=== PATIENT | male | born 1955 | race Caucasian/White ===

== ENCOUNTER 2023-12-15 00:08 | Inpatient (IN) | payer MEDICARE, OTHER ==
[2023-12-15] VITALS (13 sets, daily range): BP systolic 94–104; BP diastolic 45–51; TEMP 97.6–98.2; O2SAT 93–98
[~2023-12-15] VITALS: Ht 170.2 cm; Wt 81.2 kg
[2023-12-15] MEDS ORDERED: AMLO10TA59 PO (00:25)
[2023-12-15] MEDS ORDERED: POTA10CA43 PO (00:25)
[2023-12-15] MEDS ORDERED: FURO20TA4 PO (00:25)
[2023-12-15] MEDS ORDERED: OMEP40CA21 PO (00:25)
[2023-12-15] MEDS ORDERED: ESCI20TA44 PO (00:25)
[2023-12-15] MEDS ORDERED: ATOR20TA PO (00:25)
[2023-12-15] MEDS: IPRATROPIUM BROMIDE 0.5 MG/2.5 ML NEBU NEB ONE (00:27)
[2023-12-15] MEDS: ALBUTEROL SULFATE 2.5 MG/3 ML NEBU NEB ONE ×2 (00:27→01:24)
[2023-12-15] MEDS ORDERED: ALBUTEROL SULFATE 2.5 MG/3 ML NEBU ONE ×2 (00:32→01:05)
[2023-12-15] MEDS ORDERED: IPRATROPIUM BROMIDE 0.5 MG/2.5 ML NEBU ONE (00:32)
[2023-12-15] MEDS ORDERED: ASPIRIN 81 MG TAB.CHEW ONE (00:48)
[2023-12-15] MEDS ORDERED: methylPREDNISolone SOD SUCC 125 MG/2 ML VIAL ONE (00:48)
[2023-12-15] MEDS ORDERED: FUROSEMIDE 40 MG/4 ML VIAL ONE (00:49)
[2023-12-15 00:51] LABS: BASOPHILS # (AUTO) 0.1 K/UL (0.0-0.2); BASOPHILS % (AUTO) 1.1 % (0.0-2.0); EOSINOPHILS # (AUTO) 0.1 K/uL (0.0-0.7); EOSINOPHILS % (AUTO) 0.8 % (0.0-7.0); HEMATOCRIT 24.2 % (36.7-47.1); HEMOGLOBIN 8.4 g/dL (12.5-16.3); LYMPHOCYTES # (AUTO) 1.8 K/uL (0.8-4.8); LYMPHOCYTES % (AUTO) 17.5 % (20.5-51.5); MEAN CORPUSCULAR HEMOGLOBIN 36.5 uug (23.8-33.4); MEAN CORPUSCULAR HGB CONC 35 g/dL (32.5-36.3); MEAN CORPUSCULAR VOLUME 105.6 fL (73.0-96.2); MONOCYTES % (AUTO) 9.5 % (0.0-11.0); NEUTROPHILS # (AUTO) 7.4 K/uL (1.8-8.9); NEUTROPHILS % (AUTO) 71.1 % (38.5-71.5); PLATELET COUNT (AUTO) 99 K/uL (152-348); RED CELL DISTRIBUTION WIDTH 15.2 % (12.1-16.2); WHITE BLOOD COUNT (AUTO) 10.3 K/uL (3.6-10.2)
[2023-12-15] MEDS: ASPIRIN 81 MG TAB.CHEW PO ONE (00:58)
[2023-12-15] MEDS: FUROSEMIDE 40 MG/4 ML VIAL IV ONE ×2 (00:58→09:06)
[2023-12-15] MEDS: methylPREDNISolone SOD SUCC 125 MG/2 ML VIAL IV ONE (00:58)
[2023-12-15 00:59] LABS: CALCIUM 8.7 mg/dL (8.5-10.1); CARBON DIOXIDE 23 mmol/L (21-32); CHLORIDE 104 mmol/L (98-107); CREATININE 2.7 mg/dL (0.6-1.3); GLUCOSE 96 mg/dL (74-106); POTASSIUM 5.1 mmol/L (3.5-5.1); SODIUM SERUM 137 mmol/L (136-145); UREA NITROGEN, BLOOD 44 mg/dL (7-18)
[2023-12-15 01:01] LABS: DIFFERENTIAL COMMENT 1; RED BLOOD CELL COUNT(AUTO) 2.29 MIL/uL (4.06-5.63)
[2023-12-15] MEDS: IV NORMAL SALINE 1000 ML BAG IV ONE (01:06)
[2023-12-15 01:11] LABS: ALANINE AMINOTRANSFERASE 32 U/L (16-63); ALBUMIN 3.1 g/dL (3.4-5.0); ALKALINE PHOSPHATASE 366 U/L (50-136); ASPARTATE AMINOTRANSFERASE 40 U/L (15-37); BILIRUBIN,DIRECT 0.7 mg/dL (0.0-0.2); BILIRUBIN,TOTAL 1.5 mg/dL (0.2-1.0); NT-PRO BNP 4026 pg/mL (0-125); TOTAL PROTEIN, SERUM 7.8 g/dL (6.4-8.2)
[2023-12-15] MEDS ORDERED: CALCIUM GLUCONATE 1 GM/10 ML VIAL IV ONE (01:18)
[2023-12-15] MEDS: CALCIUM GLUCONATE IV 1 GM in IV NORMAL SALINE 100 ML IV ONE (01:29)
[2023-12-15] MEDS ORDERED: levoFLOXacin 750MG/D5W 150 ML IV ONE (01:35)
[2023-12-15] MEDS: levoFLOXacin 750 MG/D5W 150 ML PIGGYBACK IV ONE (01:44)
[2023-12-15] MEDS ORDERED: NITROGLYCERIN OINT 1 GM PACKET TP ONE (01:45)
[2023-12-15] MEDS: NITROGLYCERIN OINT 1 GM PACKET TP ONE (01:47)
[2023-12-15] MEDS ORDERED: LIDOCAINE 2% (GLYDO= UROJET) 10 ML JELLY MM ONE (02:25)
[2023-12-15] MEDS: LIDOCAINE 2% (GLYDO= UROJET) 10 ML JELLY MM ONE (02:46)
[2023-12-15] MEDS ORDERED: ZOLPIDEM 5 MG TABLET PO PRN (03:45)
[2023-12-15] MEDS: levoFLOXacin 750MG/D5W 750 MG in PREMIXED 1 EACH IV SCH ×2 (03:45→04:08)
[2023-12-15] MEDS ORDERED: ONDANSETRON 4 MG/2 ML VIAL IV PRN (03:45)
[2023-12-15] MEDS ORDERED: MAGNESIUM HYDROXIDE 30 ML LIQUID UDC PO PRN (03:45)
[2023-12-15] MEDS ORDERED: ACETAMINOPHEN 325 MG TABLET PO PRN (03:45)
[2023-12-15 07:35] LABS: BASOPHILS % (AUTO) 0.5 % (0.0-2.0); EOSINOPHILS % (AUTO) 0.1 % (0.0-7.0); HEMATOCRIT 23.1 % (36.7-47.1); HEMOGLOBIN 7.9 g/dL (12.5-16.3); LYMPHOCYTES # (AUTO) 0.4 K/uL (0.8-4.8); LYMPHOCYTES % (AUTO) 4.9 % (20.5-51.5); MEAN CORPUSCULAR HEMOGLOBIN 36.4 uug (23.8-33.4); MEAN CORPUSCULAR HGB CONC 34 g/dL (32.5-36.3); MEAN CORPUSCULAR VOLUME 106.4 fL (73.0-96.2); MONOCYTES # (AUTO) 0.2 K/uL (0.1-1.30); MONOCYTES % (AUTO) 2.6 % (0.0-11.0); NEUTROPHILS % (AUTO) 91.9 % (38.5-71.5); PLATELET COUNT (AUTO) 84 K/uL (152-348); RED CELL DISTRIBUTION WIDTH 14.9 % (12.1-16.2); WHITE BLOOD COUNT (AUTO) 7.6 K/uL (3.6-10.2)
[2023-12-15 07:57] LABS: CALCIUM 8.7 mg/dL (8.5-10.1); CREATININE 2.6 mg/dL (0.6-1.3); DIFFERENTIAL COMMENT 1; MAGNESIUM 2.3 mg/dL (1.8-2.4); RED BLOOD CELL COUNT(AUTO) 2.17 MIL/uL (4.06-5.63)
[2023-12-15 08:05] LABS: POTASSIUM 4.7 mmol/L (3.5-5.1)
[2023-12-15 08:11] LABS: ABG BASE EXCESS -5.9 mmol/L (-2.0-2.0); ABG HCO3 17.2 mmol/L (22.0-26.0); ABG PCO2 25.8 mmHg (35.0-48.0); ABG PH 7.442 (7.340-7.440); ABG PO2 70.9 mmHg (75.0-100.0); ABG SITE RIGHT RADIAL; ABG TOTAL HEMOGLOBIN 8.9 G/dL (14.0-18.0); AaDO2 95.2 mmHg; COHb 0.7 % (0.0-3.9); MetHb 0.2 % (0.0-1.5); O2Hb 92.9 % (94.0-97.0)
[2023-12-15 08:53] LABS: THYROID STIMULATING HORMONE 0.894 mIU/mL (0.358-3.740)
[2023-12-15] MEDS ORDERED: FUROSEMIDE 40 MG/4 ML VIAL IV SCH (09:00)
[2023-12-15] MEDS ORDERED: POTASSIUM CHLORIDE 10 MEQ TAB.PRT.SR PO SCH (09:00)
[2023-12-15] MEDS ORDERED: AMLODIPINE 10 MG TABLET PO SCH (09:00)
[2023-12-15] MEDS: PANTOPRAZOLE SODIUM 40 MG VIAL IV SCH (09:03)
[2023-12-15] MEDS: ESCITALOPRAM OXALATE 10 MG TABLET PO SCH (09:04)
[2023-12-15] MEDS: HEPARIN SODIUM,PORCINE 5,000 UNITS/ML VIAL SQ SCH (09:05)
[2023-12-15 11:43] LABS: LACTIC ACID 2.1 mmol/L (0.4-2.0)
[2023-12-15] MEDS ORDERED: EPINEPHRINE 1:10,000 1 MG/10 ML DISP.SYRIN ONE (18:00)
[2023-12-15] MEDS: ATORVASTATIN 20 MG TABLET PO SCH (21:13)
[2023-12-16] VITALS (36 sets, daily range): BP systolic 61–137; BP diastolic 31–71; TEMP 97–98.3; O2SAT 84–99
[2023-12-16] MEDS: IV NORMAL SALINE 500 ML IV ONE (00:53)
[2023-12-16 08:49] LABS: ALBUMIN 2.8 g/dL (3.4-5.0); BILIRUBIN,TOTAL 1.1 mg/dL (0.2-1.0); CALCIUM 8.5 mg/dL (8.5-10.1); CREATININE 2.6 mg/dL (0.6-1.3); MAGNESIUM 2.5 mg/dL (1.8-2.4); PHOSPHOROUS 6.4 mg/dL (2.5-4.9); POTASSIUM 4.9 mmol/L (3.5-5.1); TOTAL PROTEIN, SERUM 7.7 g/dL (6.4-8.2)
[2023-12-16] MEDS ORDERED: PANTOPRAZOLE SODIUM 40 MG VIAL ONE (08:59)
[2023-12-16] MEDS ORDERED: ESCITALOPRAM OXALATE 10 MG TABLET ONE (08:59)
[2023-12-16 09:14] LABS: *BLOOD, URINE 3+ (NEGATIVE); *CLARITY,URINE SLIGHTLY CLOUDY (CLEAR); *COLOR,URINE DARK YELLOW (YELLOW); *KETONES,URINE NEGATIVE (NEGATIVE); *UROBILINOGEN,URINE 0.2 E.U./dl (NORMAL); LEUKOCYTE ESTERASE ,URINE TRACE (NEGATIVE); NITRITE, URINE NEGATIVE (NEGATIVE); PH,URINE 5.5 (5.0-8.0); UGLUCOSE NEGATIVE (NEGATIVE)
[2023-12-16 09:21] LABS: *PROTEIN,URINE 3+ (NEGATIVE)
[2023-12-16 09:23] LABS: *BILIRUBIN,URIN 1+ (NEGATIVE)
[2023-12-16 09:25] LABS: BASOPHILS % (AUTO) 0.2 % (0.0-2.0); EOSINOPHILS # (AUTO) 0.1 K/uL (0.0-0.7); EOSINOPHILS % (AUTO) 0.5 % (0.0-7.0); HEMATOCRIT 22.8 % (36.7-47.1); HEMOGLOBIN 7.9 g/dL (12.5-16.3); LYMPHOCYTES # (AUTO) 1.5 K/uL (0.8-4.8); LYMPHOCYTES % (AUTO) 12.2 % (20.5-51.5); MEAN CORPUSCULAR HEMOGLOBIN 36.3 uug (23.8-33.4); MEAN CORPUSCULAR HGB CONC 34 g/dL (32.5-36.3); MEAN CORPUSCULAR VOLUME 105.5 fL (73.0-96.2); MONOCYTES # (AUTO) 0.9 K/uL (0.1-1.30); MONOCYTES % (AUTO) 6.9 % (0.0-11.0); NEUTROPHILS # (AUTO) 10.1 K/uL (1.8-8.9); NEUTROPHILS % (AUTO) 80.2 % (38.5-71.5); PLATELET COUNT (AUTO) 108 K/uL (152-348); RED CELL DISTRIBUTION WIDTH 15.1 % (12.1-16.2); WHITE BLOOD COUNT (AUTO) 12.5 K/uL (3.6-10.2)
[2023-12-16 09:26] LABS: RED BLOOD CELL COUNT(AUTO) 2.17 MIL/uL (4.06-5.63)
[2023-12-16 09:27] LABS: DIFFERENTIAL COMMENT 1
[2023-12-16 10:26] LABS: BACTERIA,URINE FEW /HPF (NONE SEEN); RBC,URINE TNTC /HPF (0-3); SQUAMOUS EPITHELIAL CELL,UR FEW /HPF (NONE SEEN); URINE AMORPHOUS URATE MODERATE /HPF
[2023-12-16] MEDS ORDERED: IPRATROPIUM BROMIDE 0.5 MG/2.5 ML NEBU ONE ×2 (11:12→15:06)
[2023-12-16] MEDS ORDERED: ALBUTEROL SULFATE 2.5 MG/3 ML NEBU ONE ×3 (11:12→15:06)
[2023-12-16] MEDS: IPRATROPIUM BROMIDE 0.5 MG/2.5 ML NEBU NEB PRN (11:21)
[2023-12-16] MEDS: ALBUTEROL SULFATE 2.5 MG/3 ML NEBU NEB PRN (11:21)
[2023-12-16] MEDS ORDERED: PIPERACILLIN/TAZOBACTAM/D5W 50 ML ONE ×2 (11:50→13:52)
[2023-12-16] MEDS: PIPERACILLIN/TAZO 2.25 G in IV DEXTROSE 5% 50 ML IV SCH (12:01)
[2023-12-16] MEDS: VANCOMYCIN IV 1,250 MG in IV DEXTROSE 5% 250 ML IV SCH (14:26)
[2023-12-16 18:09] LABS: BASOPHILS # (AUTO) 0.1 K/UL (0.0-0.2); BASOPHILS % (AUTO) 0.6 % (0.0-2.0); EOSINOPHILS # (AUTO) 0.1 K/uL (0.0-0.7); EOSINOPHILS % (AUTO) 0.2 % (0.0-7.0); HEMATOCRIT 27.5 % (36.7-47.1); HEMOGLOBIN 9.1 g/dL (12.5-16.3); LYMPHOCYTES # (AUTO) 4.2 K/uL (0.8-4.8); LYMPHOCYTES % (AUTO) 19.4 % (20.5-51.5); MEAN CORPUSCULAR HEMOGLOBIN 37.1 uug (23.8-33.4); MEAN CORPUSCULAR HGB CONC 33 g/dL (32.5-36.3); MEAN CORPUSCULAR VOLUME 111.7 fL (73.0-96.2); MONOCYTES # (AUTO) 2.2 K/uL (0.1-1.30); MONOCYTES % (AUTO) 10.3 % (0.0-11.0); NEUTROPHILS # (AUTO) 15.2 K/uL (1.8-8.9); NEUTROPHILS % (AUTO) 69.5 % (38.5-71.5); PLATELET COUNT (AUTO) 180 K/uL (152-348); RED CELL DISTRIBUTION WIDTH 16.1 % (12.1-16.2); WHITE BLOOD COUNT (AUTO) 21.8 K/uL (3.6-10.2)
[2023-12-16 18:15] LABS: DIFFERENTIAL COMMENT 1; RED BLOOD CELL COUNT(AUTO) 2.46 MIL/uL (4.06-5.63)
[2023-12-16 18:25] LABS: BILIRUBIN,TOTAL 1.5 mg/dL (0.2-1.0); CALCIUM 8.5 mg/dL (8.5-10.1); MAGNESIUM 2.5 mg/dL (1.8-2.4); PHOSPHOROUS 7.7 mg/dL (2.5-4.9); POTASSIUM 4.5 mmol/L (3.5-5.1); TOTAL PROTEIN, SERUM 8.3 g/dL (6.4-8.2)
[2023-12-16] MEDS ORDERED: PROPOFOL 50 ML IV PRN (18:30)
[2023-12-16] MEDS: LORAZEPAM 2 MG/1 ML VIAL IV PRN (18:38)
[2023-12-16] MEDS: PROPOFOL 100 ML IV PRN (18:43)
[2023-12-16 19:39] LABS: LACTIC ACID 4.3 mmol/L (0.4-2.0)
[2023-12-16] MEDS: BUMETANIDE 1 MG/4 ML VIAL IV ONE (20:20)
[2023-12-16] MEDS: NOREPINEPHRINE BITARTRATE 8 MG in IV NORMAL SALINE 242 ML IV PRN (20:30)
[2023-12-16] MEDS ORDERED: NOREPINEPHRINE BITARTRATE 4 MG/4 ML VIAL IV ONE (20:43)
[2023-12-16 20:54] LABS: ANISOCYTOSIS 1+; LYMPHOCYTES % (MANUAL) 32 % (20-40); MONOCYTES % (MANUAL) 9 % (2-10); NEUTROPHILS % (MANUAL) 59 % (42-75); PLATELET ESTIMATE ADEQUATE
[2023-12-16] MEDS: PIPERACILLIN SODIUM/TAZOBACTAM 3.375 G in IV DEXTROSE 5% 100 ML IV SCH (21:00)
[2023-12-16] MEDS: PANTOPRAZOLE SODIUM 40 MG VIAL IV SCH (21:18)
[2023-12-16] MEDS ORDERED: DOXYCYCLINE HYCLATE 100 MG INJ IV ONE (22:25)
[2023-12-16] MEDS: DOXYCYCLINE HYCLATE IV 100 MG in IV DEXTROSE 5% 100 ML IV ONE (22:50)
[2023-12-17] VITALS (82 sets, daily range): BP systolic 66–144; BP diastolic 36–62; TEMP 98.1–100.8; O2SAT 90–100
[2023-12-17] MEDS: ACETAMINOPHEN 650 MG SUPP.RECT RC PRN (00:20)
[2023-12-17] MEDS ORDERED: NOREPINEPHRINE BITARTRATE 4 MG/4 ML VIAL IV ONE (02:20)
[2023-12-17 05:41] LABS: BASOPHILS % (AUTO) 0.3 % (0.0-2.0); DIFFERENTIAL COMMENT 1; HEMATOCRIT 33.2 % (36.7-47.1); HEMOGLOBIN 11.4 g/dL (12.5-16.3); LYMPHOCYTES % (AUTO) 6.8 % (20.5-51.5); MEAN CORPUSCULAR HEMOGLOBIN 36.2 uug (23.8-33.4); MEAN CORPUSCULAR HGB CONC 34 g/dL (32.5-36.3); MEAN CORPUSCULAR VOLUME 105.8 fL (73.0-96.2); MONOCYTES # (AUTO) 1.8 K/uL (0.1-1.30); MONOCYTES % (AUTO) 12.6 % (0.0-11.0); NEUTROPHILS # (AUTO) 11.5 K/uL (1.8-8.9); NEUTROPHILS % (AUTO) 80.3 % (38.5-71.5); PLATELET COUNT (AUTO) 208 K/uL (152-348); RED BLOOD CELL COUNT(AUTO) 3.14 MIL/uL (4.06-5.63); RED CELL DISTRIBUTION WIDTH 15.3 % (12.1-16.2); WHITE BLOOD COUNT (AUTO) 14.3 K/uL (3.6-10.2)
[2023-12-17 06:14] LABS: ALBUMIN 2.7 g/dL (3.4-5.0); BILIRUBIN,TOTAL 1.9 mg/dL (0.2-1.0); CALCIUM 8.2 mg/dL (8.5-10.1); CREATININE 2.9 mg/dL (0.6-1.3); MAGNESIUM 2.4 mg/dL (1.8-2.4); PHOSPHOROUS 6.4 mg/dL (2.5-4.9); TOTAL PROTEIN, SERUM 7.9 g/dL (6.4-8.2)
[2023-12-17 06:20] LABS: ABG HCO3 17.4 mmol/L (22.0-26.0); ABG PCO2 30.9 mmHg (35.0-48.0); ABG PH 7.368 (7.340-7.440); ABG PO2 66.3 mmHg (75.0-100.0); ABG SITE LEFT BRACHIAL; ABG TOTAL HEMOGLOBIN 9.8 G/dL (14.0-18.0); AaDO2 92.9 mmHg; COHb 0.3 % (0.0-3.9); MetHb 0.3 % (0.0-1.5); O2Hb 90.3 % (94.0-97.0); VT, ABG 500 mL
[2023-12-17 06:30] LABS: ABG BASE EXCESS -6.3 mmol/L (-2.0-2.0); ABG PCO2 26.7 mmHg (35.0-48.0); ABG PH 7.422 (7.340-7.440); ABG PO2 57.1 mmHg (75.0-100.0); ABG TOTAL HEMOGLOBIN 9.6 G/dL (14.0-18.0); AaDO2 90.9 mmHg; MetHb 0.2 % (0.0-1.5); O2Hb 88.7 % (94.0-97.0); VT, ABG 500 mL
[2023-12-17 06:32] LABS: POTASSIUM 6.7 mmol/L (3.5-5.1)
[2023-12-17] MEDS ORDERED: PANTOPRAZOLE SODIUM 40 MG TABLET.DR PO SCH (07:00)
[2023-12-17] MEDS ORDERED: ALBUTEROL SULFATE 2.5 MG/3 ML NEBU NEB SCH (08:30)
[2023-12-17] MEDS: methylPREDNISolone SOD SUCC 125 MG/2 ML VIAL IV SCH (09:29)
[2023-12-17] MEDS: FUROSEMIDE 20 MG/2 ML VIAL IV SCH (09:30)
[2023-12-17] MEDS: DOXYCYCLINE HYCLATE IV 100 MG in IV DEXTROSE 5% 100 ML IV SCH (09:34)
[2023-12-17] MEDS ORDERED: SODIUM POLYSTYRENE SULFONATE 15 G/60 ML LIQUID UDC NG ONE (10:00)
[2023-12-17] MEDS: IPRATROPIUM BROMIDE 0.5 MG/2.5 ML NEBU NEB SCH (10:19)
[2023-12-17] MEDS: ALBUTEROL SULFATE 1.25 MG/3 ML NEBU NEB SCH (10:19)
[2023-12-17] MEDS: SODIUM POLYSTYRENE SULFONATE ENEMA 30 G/120 ML BOTTLE RC ONE (10:59)
[2023-12-17] MEDS: FUROSEMIDE 20 MG/2 ML VIAL IVP ONE (11:00)
[2023-12-17] MEDS ORDERED: HEPARIN SODIUM,PORCINE/PF 500 UNIT/5 ML SYR XX PRN (11:00)
[2023-12-17] MEDS: MULTIVITAMINS,THERAPEUTIC TABLET NG SCH (15:52)
[2023-12-17] MEDS: FOLIC ACID 1 MG TABLET NG SCH (15:53)
[2023-12-17] MEDS: THIAMINE HCL 100 MG TABLET NG SCH (15:53)
[2023-12-17] MEDS: PIPERACILLIN/TAZO 2.25 G in IV DEXTROSE 5% 50 ML IV SCH (16:45)
[2023-12-17] MEDS ORDERED: FUROSEMIDE 20 MG/2 ML VIAL IV SCH (21:00)
[2023-12-17] MEDS: FUROSEMIDE 40 MG/4 ML VIAL IVP SCH (21:27)
[2023-12-17] MEDS: IV NORMAL SALINE 250 ML IV PRN (21:44)
[2023-12-18] VITALS (64 sets, daily range): BP systolic 80–144; BP diastolic 37–60; TEMP 97.7–98.4; O2SAT 97–100
[2023-12-18 05:20] LABS: BASOPHILS % (AUTO) 0.1 % (0.0-2.0); HEMATOCRIT 24.8 % (36.7-47.1); HEMOGLOBIN 8.6 g/dL (12.5-16.3); LYMPHOCYTES # (AUTO) 0.5 K/uL (0.8-4.8); LYMPHOCYTES % (AUTO) 6.8 % (20.5-51.5); MEAN CORPUSCULAR HEMOGLOBIN 36.2 uug (23.8-33.4); MEAN CORPUSCULAR HGB CONC 35 g/dL (32.5-36.3); MEAN CORPUSCULAR VOLUME 104.5 fL (73.0-96.2); MONOCYTES # (AUTO) 0.4 K/uL (0.1-1.30); MONOCYTES % (AUTO) 5.9 % (0.0-11.0); NEUTROPHILS # (AUTO) 6.4 K/uL (1.8-8.9); NEUTROPHILS % (AUTO) 87.2 % (38.5-71.5); PLATELET COUNT (AUTO) 123 K/uL (152-348); RED CELL DISTRIBUTION WIDTH 14.3 % (12.1-16.2); WHITE BLOOD COUNT (AUTO) 7.4 K/uL (3.6-10.2)
[2023-12-18 05:36] LABS: ALBUMIN 2.6 g/dL (3.4-5.0); BILIRUBIN,TOTAL 1.6 mg/dL (0.2-1.0); CALCIUM 8.6 mg/dL (8.5-10.1); CREATININE 2.3 mg/dL (0.6-1.3); MAGNESIUM 2.3 mg/dL (1.8-2.4); PHOSPHOROUS 4.5 mg/dL (2.5-4.9); POTASSIUM 3.1 mmol/L (3.5-5.1); TOTAL PROTEIN, SERUM 7.5 g/dL (6.4-8.2)
[2023-12-18 06:29] LABS: DIFFERENTIAL COMMENT 1; RED BLOOD CELL COUNT(AUTO) 2.37 MIL/uL (4.06-5.63)
[2023-12-18 07:06] LABS: PTH, INTACT 63 pg/mL (15-65)
[2023-12-18 08:24] LABS: ABG BASE EXCESS -1.2 mmol/L (-2.0-2.0); ABG HCO3 22.4 mmol/L (22.0-26.0); ABG PCO2 32.7 mmHg (35.0-48.0); ABG PH 7.453 (7.340-7.440); ABG PO2 131.4 mmHg (75.0-100.0); AaDO2 98.8 mmHg; COHb 0.3 % (0.0-3.9); MetHb 0.3 % (0.0-1.5); VT, ABG 500 mL
[2023-12-18] MEDS ORDERED: NOREPINEPHRINE BITARTRATE 32 MG in IV NORMAL SALINE 218 ML IV PRN (08:45)
[2023-12-18] MEDS: POTASSIUM CHLORIDE 50 ML IV SCH (10:11)
[2023-12-18] MEDS: JEVITY 1.2 1000 ML LIQUID GT PRN (14:09)
[2023-12-18] MEDS: methylPREDNISolone SOD SUCC 40 MG/ML VIAL IV SCH (16:58)
[2023-12-18 23:40] LABS: *OCCULT BLOOD STOOL POSITIVE (NEGATIVE)
[2023-12-18 23:49] LABS: CALCIUM 8.7 mg/dL (8.5-10.1); CREATININE 1.9 mg/dL (0.6-1.3); POTASSIUM 3.4 mmol/L (3.5-5.1)
[2023-12-19] VITALS (42 sets, daily range): BP systolic 92–136; BP diastolic 37–98; TEMP 97.1–99.2; O2SAT 96–100
[2023-12-19 05:10] LABS: BASOPHILS % (AUTO) 0.2 % (0.0-2.0); HEMATOCRIT 23.6 % (36.7-47.1); HEMOGLOBIN 8.2 g/dL (12.5-16.3); LYMPHOCYTES # (AUTO) 0.6 K/uL (0.8-4.8); LYMPHOCYTES % (AUTO) 7.4 % (20.5-51.5); MEAN CORPUSCULAR HEMOGLOBIN 36.3 uug (23.8-33.4); MEAN CORPUSCULAR HGB CONC 35 g/dL (32.5-36.3); MEAN CORPUSCULAR VOLUME 104.6 fL (73.0-96.2); MONOCYTES # (AUTO) 0.6 K/uL (0.1-1.30); MONOCYTES % (AUTO) 7.8 % (0.0-11.0); NEUTROPHILS # (AUTO) 6.8 K/uL (1.8-8.9); NEUTROPHILS % (AUTO) 84.6 % (38.5-71.5); PLATELET COUNT (AUTO) 125 K/uL (152-348); RED CELL DISTRIBUTION WIDTH 14.7 % (12.1-16.2)
[2023-12-19 05:28] LABS: DIFFERENTIAL COMMENT 1; RED BLOOD CELL COUNT(AUTO) 2.25 MIL/uL (4.06-5.63)
[2023-12-19 05:39] LABS: *BILIRUBIN,URIN NEGATIVE (NEGATIVE); *BLOOD, URINE 3+ (NEGATIVE); *COLOR,URINE YELLOW (YELLOW); *KETONES,URINE NEGATIVE (NEGATIVE); *PROTEIN,URINE NEGATIVE (NEGATIVE); *UROBILINOGEN,URINE 0.2 E.U./dl (NORMAL); LEUKOCYTE ESTERASE ,URINE TRACE (NEGATIVE); NITRITE, URINE NEGATIVE (NEGATIVE); PH,URINE 5.5 (5.0-8.0); UGLUCOSE NEGATIVE (NEGATIVE)
[2023-12-19 05:44] LABS: ALBUMIN 2.5 g/dL (3.4-5.0); CALCIUM 8.6 mg/dL (8.5-10.1); CREATININE 2.1 mg/dL (0.6-1.3); MAGNESIUM 2.5 mg/dL (1.8-2.4); PHOSPHOROUS 4.6 mg/dL (2.5-4.9); POTASSIUM 3.7 mmol/L (3.5-5.1); TOTAL PROTEIN, SERUM 7.3 g/dL (6.4-8.2)
[2023-12-19 05:49] LABS: ABG BASE EXCESS -0.3 mmol/L (-2.0-2.0); ABG HCO3 22.7 mmol/L (22.0-26.0); ABG PH 7.483 (7.340-7.440); ABG PO2 139.5 mmHg (75.0-100.0); ABG SITE LEFT BRACHIAL; ABG TOTAL HEMOGLOBIN 8.9 G/dL (14.0-18.0); COHb 0.1 % (0.0-3.9); MetHb 0.3 % (0.0-1.5); O2Hb 98.6 % (94.0-97.0); VT, ABG 500 mL
[2023-12-19 05:50] LABS: *CLARITY,URINE SLIGHTLY CLOUDY (CLEAR)
[2023-12-19 05:59] LABS: *CREATININE,URINE 63.1 mg/dL (30-125); *URINE TOTAL PROTEIN RANDOM 38.7 mg/dL (<150/24HR)
[2023-12-19 06:14] LABS: BACTERIA,URINE MODERATE /HPF (NONE SEEN); CALCIUM OXALATE CRYSTALS,UR MODERATE /HPF (NONE SEEN); RBC,URINE TNTC /HPF (0-3); SQUAMOUS EPITHELIAL CELL,UR NONE SEEN /HPF (NONE SEEN); WBC,URINE 0-3 /HPF (0-3)
[2023-12-19] MEDS: LACTULOSE 20 G/30 ML LIQUID UDC PO SCH (10:00)
[2023-12-19] MEDS: REMEDY ESSENTIAL ZINC PASTE 113 GM TOP SCH (12:15)
[2023-12-19] MEDS: REMEDY ESSENTIAL ZINC PASTE 113 GM TP PRN (13:48)
[2023-12-19] MEDS: PROPOFOL 100 ML IV PRN (15:31)
[2023-12-20] VITALS (41 sets, daily range): BP systolic 92–140; BP diastolic 39–89; TEMP 97.5–98.1; O2SAT 95–100
[2023-12-20 05:09] LABS: BASOPHILS % (AUTO) 0.3 % (0.0-2.0); EOSINOPHILS % (AUTO) 0.1 % (0.0-7.0); HEMATOCRIT 25.7 % (36.7-47.1); HEMOGLOBIN 9.5 g/dL (12.5-16.3); LYMPHOCYTES # (AUTO) 0.5 K/uL (0.8-4.8); LYMPHOCYTES % (AUTO) 7.3 % (20.5-51.5); MEAN CORPUSCULAR HEMOGLOBIN 38.7 uug (23.8-33.4); MEAN CORPUSCULAR HGB CONC 37 g/dL (32.5-36.3); MEAN CORPUSCULAR VOLUME 104.8 fL (73.0-96.2); MONOCYTES # (AUTO) 0.5 K/uL (0.1-1.30); MONOCYTES % (AUTO) 6.5 % (0.0-11.0); NEUTROPHILS # (AUTO) 6.2 K/uL (1.8-8.9); NEUTROPHILS % (AUTO) 85.8 % (38.5-71.5); PLATELET COUNT (AUTO) 123 K/uL (152-348); RED CELL DISTRIBUTION WIDTH 14.6 % (12.1-16.2); WHITE BLOOD COUNT (AUTO) 7.3 K/uL (3.6-10.2)
[2023-12-20 05:24] LABS: DIFFERENTIAL COMMENT 1; RED BLOOD CELL COUNT(AUTO) 2.45 MIL/uL (4.06-5.63)
[2023-12-20 05:32] LABS: CALCIUM 8.5 mg/dL (8.5-10.1); CREATININE 1.9 mg/dL (0.6-1.3); MAGNESIUM 2.5 mg/dL (1.8-2.4); PHOSPHOROUS 5.5 mg/dL (2.5-4.9); POTASSIUM 3.3 mmol/L (3.5-5.1)
[2023-12-20 06:07] LABS: HEPATITIS B SURFACE AG Negative (Negative); HEPATITIS Be ANTIGEN Negative (Negative)
[2023-12-20 06:11] LABS: ABG BASE EXCESS -0.9 mmol/L (-2.0-2.0); ABG HCO3 21.7 mmol/L (22.0-26.0); ABG PCO2 30.7 mmHg (35.0-48.0); ABG PH 7.467 (7.340-7.440); ABG PO2 80.9 mmHg (75.0-100.0); ABG SITE RIGHT RADIAL; ABG TOTAL HEMOGLOBIN 14.7 G/dL (14.0-18.0); AaDO2 96.7 mmHg; COHb 0.7 % (0.0-3.9); MetHb 0.3 % (0.0-1.5); O2Hb 95.4 % (94.0-97.0); VT, ABG 500 mL
[2023-12-20] MEDS: POTASSIUM CHLORIDE 20 MEQ POWDER PACKET GT ONE (07:03)
[2023-12-20] MEDS: MIDAZOLAM HCL 50 MG in IV NORMAL SALINE 40 ML IV PRN (20:26)
[2023-12-21] VITALS (46 sets, daily range): BP systolic 97–132; BP diastolic 43–70; TEMP 97.5–98.1; O2SAT 93–100
[2023-12-21 06:00] LABS: BASOPHILS % (AUTO) 0.2 % (0.0-2.0); EOSINOPHILS % (AUTO) 0.1 % (0.0-7.0); HEMATOCRIT 27.8 % (36.7-47.1); HEMOGLOBIN 9.5 g/dL (12.5-16.3); LYMPHOCYTES # (AUTO) 0.6 K/uL (0.8-4.8); LYMPHOCYTES % (AUTO) 8.3 % (20.5-51.5); MEAN CORPUSCULAR HEMOGLOBIN 35.7 uug (23.8-33.4); MEAN CORPUSCULAR HGB CONC 34 g/dL (32.5-36.3); MEAN CORPUSCULAR VOLUME 104.4 fL (73.0-96.2); MONOCYTES # (AUTO) 0.5 K/uL (0.1-1.30); NEUTROPHILS # (AUTO) 6.5 K/uL (1.8-8.9); NEUTROPHILS % (AUTO) 85.4 % (38.5-71.5); PLATELET COUNT (AUTO) 128 K/uL (152-348); RED BLOOD CELL COUNT(AUTO) 2.67 MIL/uL (4.06-5.63); RED CELL DISTRIBUTION WIDTH 14.4 % (12.1-16.2); WHITE BLOOD COUNT (AUTO) 7.6 K/uL (3.6-10.2)
[2023-12-21 06:13] LABS: DIFFERENTIAL COMMENT 1
[2023-12-21 06:25] LABS: CALCIUM 8.9 mg/dL (8.5-10.1); CREATININE 2.2 mg/dL (0.6-1.3); MAGNESIUM 2.7 mg/dL (1.8-2.4); PHOSPHOROUS 5.6 mg/dL (2.5-4.9)
[2023-12-21] MEDS: FUROSEMIDE 40 MG/4 ML VIAL IVP SCH (08:17)
[2023-12-21 08:19] LABS: ABG HCO3 25.2 mmol/L (22.0-26.0); ABG PCO2 35.4 mmHg (35.0-48.0); ABG PO2 80.8 mmHg (75.0-100.0); ABG SITE LEFT RADIAL; ABG TOTAL HEMOGLOBIN 16.3 G/dL (14.0-18.0); AaDO2 96.6 mmHg; COHb 0.8 % (0.0-3.9); MetHb 0.3 % (0.0-1.5); O2Hb 94.8 % (94.0-97.0); VT, ABG 500 mL
[2023-12-21 09:07] LABS: A/G RATIO 0.6 (0.7-1.7); ALBUMIN 2.6 g/dL (2.9-4.4); ALPHA-1-GLOBULIN 0.4 g/dL (0.0-0.4); ALPHA-2-GLOBULIN 0.9 g/dL (0.4-1.0); BETA GLOBULIN 1.2 g/dL (0.7-1.3); GAMMA GLOBULIN 1.9 g/dL (0.4-1.8); GLOBULIN, TOTAL 4.4 g/dL (2.2-3.9); M-SPIKE Not Observed g/dL (Not Observed)
[2023-12-21] MEDS: JEVITY 1.2 1000 ML LIQUID GT PRN (18:55)
[2023-12-22] VITALS (17 sets, daily range): BP systolic 98–130; BP diastolic 44–65; TEMP 97.1–99.3; O2SAT 92–98
[2023-12-22 05:18] LABS: BASOPHILS % (AUTO) 0.2 % (0.0-2.0); HEMATOCRIT 28.3 % (36.7-47.1); HEMOGLOBIN 9.7 g/dL (12.5-16.3); LYMPHOCYTES # (AUTO) 0.9 K/uL (0.8-4.8); LYMPHOCYTES % (AUTO) 8.9 % (20.5-51.5); MEAN CORPUSCULAR HGB CONC 34 g/dL (32.5-36.3); MEAN CORPUSCULAR VOLUME 102.4 fL (73.0-96.2); MONOCYTES # (AUTO) 0.8 K/uL (0.1-1.30); MONOCYTES % (AUTO) 8.3 % (0.0-11.0); NEUTROPHILS % (AUTO) 82.6 % (38.5-71.5); PLATELET COUNT (AUTO) 131 K/uL (152-348); RED BLOOD CELL COUNT(AUTO) 2.76 MIL/uL (4.06-5.63); RED CELL DISTRIBUTION WIDTH 14.3 % (12.1-16.2); WHITE BLOOD COUNT (AUTO) 9.7 K/uL (3.6-10.2)
[2023-12-22 05:32] LABS: MAGNESIUM 2.6 mg/dL (1.8-2.4); PHOSPHOROUS 5.3 mg/dL (2.5-4.9)
[2023-12-22 05:34] LABS: ALANINE AMINOTRANSFERASE 85 U/L (16-63); ALBUMIN 2.7 g/dL (3.4-5.0); ALKALINE PHOSPHATASE 215 U/L (50-136); ASPARTATE AMINOTRANSFERASE 58 U/L (15-37); BILIRUBIN,TOTAL 1.1 mg/dL (0.2-1.0); CALCIUM 8.2 mg/dL (8.5-10.1); CARBON DIOXIDE 30 mmol/L (21-32); CHLORIDE 103 mmol/L (98-107); CREATININE 2.2 mg/dL (0.6-1.3); GLUCOSE 142 mg/dL (74-106); POTASSIUM 3.8 mmol/L (3.5-5.1); SODIUM SERUM 141 mmol/L (136-145); TOTAL PROTEIN, SERUM 7.6 g/dL (6.4-8.2); UREA NITROGEN, BLOOD 68 mg/dL (7-18)
[2023-12-22 05:38] LABS: AMMONIA < 10 umol/L (11-32)
[2023-12-22 05:39] LABS: DIFFERENTIAL COMMENT 1
[2023-12-22 06:25] LABS: ABG BASE EXCESS 4.2 mmol/L (-2.0-2.0); ABG HCO3 27.3 mmol/L (22.0-26.0); ABG PCO2 35.5 mmHg (35.0-48.0); ABG PH 7.504 (7.340-7.440); ABG PO2 75.3 mmHg (75.0-100.0); ABG SITE RIGHT RADIAL; ABG TOTAL HEMOGLOBIN 11.3 G/dL (14.0-18.0); AaDO2 96.2 mmHg; COHb 0.2 % (0.0-3.9); MetHb 0.2 % (0.0-1.5); O2Hb 94.5 % (94.0-97.0); VT, ABG 500 mL
[2023-12-22] MEDS: methylPREDNISolone SOD SUCC 40 MG/ML VIAL IV SCH (08:40)
[2023-12-22 10:09] LABS: ABG HCO3 27.3 mmol/L (22.0-26.0); ABG PCO2 36.2 mmHg (35.0-48.0); ABG PH 7.495 (7.340-7.440); ABG PO2 70.8 mmHg (75.0-100.0); AaDO2 95.5 mmHg; COHb 0.2 % (0.0-3.9); MetHb 0.2 % (0.0-1.5); O2Hb 93.7 % (94.0-97.0); VT, ABG 500 mL
[2023-12-22 23:07] LABS: FOLATE (FOLIC ACID), SERUM 12.3 ng/mL (>3.0)
[2023-12-23] VITALS (44 sets, daily range): BP systolic 97–163; BP diastolic 47–77; TEMP 97.8–101.3; O2SAT 30–100
[2023-12-23] MEDS ORDERED: LORAZEPAM 2 MG/1 ML VIAL IV PRN (05:15)
[2023-12-23 05:26] LABS: BASOPHILS % (AUTO) 0.3 % (0.0-2.0); HEMATOCRIT 27.7 % (36.7-47.1); HEMOGLOBIN 9.5 g/dL (12.5-16.3); LYMPHOCYTES # (AUTO) 1.2 K/uL (0.8-4.8); LYMPHOCYTES % (AUTO) 10.7 % (20.5-51.5); MEAN CORPUSCULAR HEMOGLOBIN 35.1 uug (23.8-33.4); MEAN CORPUSCULAR HGB CONC 34 g/dL (32.5-36.3); MEAN CORPUSCULAR VOLUME 102.2 fL (73.0-96.2); MONOCYTES # (AUTO) 1.1 K/uL (0.1-1.30); MONOCYTES % (AUTO) 9.4 % (0.0-11.0); NEUTROPHILS # (AUTO) 8.9 K/uL (1.8-8.9); NEUTROPHILS % (AUTO) 79.6 % (38.5-71.5); PLATELET COUNT (AUTO) 143 K/uL (152-348); RED BLOOD CELL COUNT(AUTO) 2.71 MIL/uL (4.06-5.63); RED CELL DISTRIBUTION WIDTH 14.4 % (12.1-16.2); WHITE BLOOD COUNT (AUTO) 11.2 K/uL (3.6-10.2)
[2023-12-23 06:09] LABS: MAGNESIUM 3.4 mg/dL (1.8-2.4); PHOSPHOROUS 5.6 mg/dL (2.5-4.9)
[2023-12-23 06:24] LABS: DIFFERENTIAL COMMENT 1
[2023-12-23 06:28] LABS: ALBUMIN 2.7 g/dL (3.4-5.0); BILIRUBIN,TOTAL 0.9 mg/dL (0.2-1.0); CALCIUM 8.7 mg/dL (8.5-10.1); CREATININE 2.5 mg/dL (0.6-1.3); POTASSIUM 4.5 mmol/L (3.5-5.1); TOTAL PROTEIN, SERUM 7.4 g/dL (6.4-8.2)
[2023-12-23] MEDS: NYSTATIN SUSPENSION 5 ML LIQUID UDC PO SCH (08:58)
[2023-12-23 10:47] LABS: ABG BASE EXCESS 3.1 mmol/L (-2.0-2.0); ABG PH 7.502 (7.340-7.440); ABG PO2 67.3 mmHg (75.0-100.0); ABG SITE RIGHT RADIAL; ABG TOTAL HEMOGLOBIN 11.5 G/dL (14.0-18.0); COHb 0.3 % (0.0-3.9); MetHb 0.3 % (0.0-1.5); O2Hb 92.8 % (94.0-97.0)
[2023-12-23] MEDS ORDERED: PROPOFOL 100 ML IV PRN (12:45)
[2023-12-23] MEDS: LORAZEPAM 2 MG/1 ML VIAL IV PRN (12:52)
[2023-12-23] MEDS: FLUCONAZOLE 100 MG TABLET PO SCH (20:28)
[2023-12-23] MEDS ORDERED: MIDAZOLAM HCL 5 MG/ML VIAL ONE (20:56)
[2023-12-23] MEDS: MIDAZOLAM HCL 2 MG/2 ML VIAL ONE (21:26)
[2023-12-23] MEDS: MIDAZOLAM HCL 50 MG in IV NORMAL SALINE 40 ML IV PRN (21:41)
[2023-12-23] MEDS ORDERED: MIDAZOLAM HCL 10 MG/2 ML VIAL ONE (22:52)
[2023-12-24] VITALS (65 sets, daily range): BP systolic 83–159; BP diastolic 50–86; TEMP 97.4–98.2; O2SAT 93–100
[2023-12-24] MEDS: MIDAZOLAM HCL 2 MG/2 ML VIAL ONE (00:41)
[2023-12-24 05:23] LABS: BASOPHILS % (AUTO) 0.2 % (0.0-2.0); HEMATOCRIT 28.7 % (36.7-47.1); HEMOGLOBIN 9.9 g/dL (12.5-16.3); LYMPHOCYTES # (AUTO) 1.1 K/uL (0.8-4.8); LYMPHOCYTES % (AUTO) 8.8 % (20.5-51.5); MEAN CORPUSCULAR HEMOGLOBIN 35.5 uug (23.8-33.4); MEAN CORPUSCULAR HGB CONC 34 g/dL (32.5-36.3); MEAN CORPUSCULAR VOLUME 103.3 fL (73.0-96.2); MONOCYTES # (AUTO) 0.8 K/uL (0.1-1.30); MONOCYTES % (AUTO) 6.4 % (0.0-11.0); NEUTROPHILS # (AUTO) 10.5 K/uL (1.8-8.9); NEUTROPHILS % (AUTO) 84.6 % (38.5-71.5); PLATELET COUNT (AUTO) 134 K/uL (152-348); RED BLOOD CELL COUNT(AUTO) 2.78 MIL/uL (4.06-5.63); RED CELL DISTRIBUTION WIDTH 14.3 % (12.1-16.2); WHITE BLOOD COUNT (AUTO) 12.5 K/uL (3.6-10.2)
[2023-12-24 05:28] LABS: DIFFERENTIAL COMMENT 1
[2023-12-24 05:47] LABS: ALBUMIN 2.7 g/dL (3.4-5.0); BILIRUBIN,TOTAL 1.2 mg/dL (0.2-1.0); CALCIUM 9.2 mg/dL (8.5-10.1); CREATININE 2.2 mg/dL (0.6-1.3); POTASSIUM 4.3 mmol/L (3.5-5.1); TOTAL PROTEIN, SERUM 7.6 g/dL (6.4-8.2)
[2023-12-24] MEDS: CLONAZEPAM 1 MG TABLET PO SCH (11:21)
[2023-12-24] MEDS: LORAZEPAM 2 MG/1 ML VIAL IV PRN (11:28)
[2023-12-24] MEDS: GABAPENTIN 300 MG CAPSULE PO SCH (19:02)
[2023-12-24] MEDS: NYSTATIN CREAM 30 GM TUBE TOP SCH (22:23)
[2023-12-25] VITALS (50 sets, daily range): BP systolic 95–145; BP diastolic 52–75; TEMP 97.7–98.4; O2SAT 100
[2023-12-25 05:09] LABS: BASOPHILS % (AUTO) 0.2 % (0.0-2.0); HEMATOCRIT 31.1 % (36.7-47.1); HEMOGLOBIN 10.6 g/dL (12.5-16.3); MEAN CORPUSCULAR HEMOGLOBIN 34.9 uug (23.8-33.4); MEAN CORPUSCULAR HGB CONC 34 g/dL (32.5-36.3); MEAN CORPUSCULAR VOLUME 102.2 fL (73.0-96.2); MONOCYTES # (AUTO) 1.3 K/uL (0.1-1.30); MONOCYTES % (AUTO) 7.4 % (0.0-11.0); NEUTROPHILS # (AUTO) 14.9 K/uL (1.8-8.9); NEUTROPHILS % (AUTO) 86.4 % (38.5-71.5); PLATELET COUNT (AUTO) 122 K/uL (152-348); RED BLOOD CELL COUNT(AUTO) 3.04 MIL/uL (4.06-5.63); RED CELL DISTRIBUTION WIDTH 13.9 % (12.1-16.2); WHITE BLOOD COUNT (AUTO) 17.3 K/uL (3.6-10.2)
[2023-12-25 05:17] LABS: DIFFERENTIAL COMMENT 1
[2023-12-25 05:33] LABS: ABG BASE EXCESS 2.2 mmol/L (-2.0-2.0); ABG HCO3 25.8 mmol/L (22.0-26.0); ABG PCO2 36.5 mmHg (35.0-48.0); ABG PH 7.467 (7.340-7.440); ABG PO2 75.4 mmHg (75.0-100.0); ABG SITE LEFT RADIAL; ABG TOTAL HEMOGLOBIN 11.6 G/dL (14.0-18.0); AaDO2 95.9 mmHg; COHb 0.1 % (0.0-3.9); MetHb 0.2 % (0.0-1.5); O2Hb 94.8 % (94.0-97.0); VT, ABG 500 mL
[2023-12-25 05:36] LABS: MAGNESIUM 2.8 mg/dL (1.8-2.4); PHOSPHOROUS 6.7 mg/dL (2.5-4.9)
[2023-12-25 06:07] LABS: POTASSIUM 4.4 mmol/L (3.5-5.1)
[2023-12-25 06:08] LABS: BILIRUBIN,TOTAL 1.4 mg/dL (0.2-1.0); TOTAL PROTEIN, SERUM 8.3 g/dL (6.4-8.2)
[2023-12-25 06:09] LABS: ALBUMIN 3.1 g/dL (3.4-5.0)
[2023-12-25 06:10] LABS: CALCIUM 8.8 mg/dL (8.5-10.1); CREATININE 2.3 mg/dL (0.6-1.3)
[2023-12-25] MEDS ORDERED: GABAPENTIN 300 MG CAPSULE PO SCH (09:45)
[2023-12-25] MEDS ORDERED: CLONAZEPAM 1 MG TABLET PO SCH (09:45)
[2023-12-25] MEDS ORDERED: GABAPENTIN 400 MG CAPSULE NG SCH (14:00)
[2023-12-25] MEDS: GABAPENTIN 400 MG CAPSULE NG SCH (21:56)
[2023-12-26] VITALS (39 sets, daily range): BP systolic 95–142; BP diastolic 52–88; TEMP 98–99.1; O2SAT 94–100
[2023-12-26 05:14] LABS: BASOPHILS % (AUTO) 0.1 % (0.0-2.0); HEMATOCRIT 30.3 % (36.7-47.1); HEMOGLOBIN 10.4 g/dL (12.5-16.3); LYMPHOCYTES # (AUTO) 0.7 K/uL (0.8-4.8); LYMPHOCYTES % (AUTO) 3.7 % (20.5-51.5); MEAN CORPUSCULAR HEMOGLOBIN 34.9 uug (23.8-33.4); MEAN CORPUSCULAR HGB CONC 34 g/dL (32.5-36.3); MEAN CORPUSCULAR VOLUME 101.4 fL (73.0-96.2); MONOCYTES # (AUTO) 0.9 K/uL (0.1-1.30); MONOCYTES % (AUTO) 5.1 % (0.0-11.0); NEUTROPHILS # (AUTO) 16.5 K/uL (1.8-8.9); NEUTROPHILS % (AUTO) 91.1 % (38.5-71.5); PLATELET COUNT (AUTO) 123 K/uL (152-348); RED BLOOD CELL COUNT(AUTO) 2.99 MIL/uL (4.06-5.63); RED CELL DISTRIBUTION WIDTH 14.1 % (12.1-16.2); WHITE BLOOD COUNT (AUTO) 18.1 K/uL (3.6-10.2)
[2023-12-26 05:28] LABS: DIFFERENTIAL COMMENT 1
[2023-12-26 05:47] LABS: BILIRUBIN,TOTAL 1.2 mg/dL (0.2-1.0); CALCIUM 8.7 mg/dL (8.5-10.1); MAGNESIUM 3.4 mg/dL (1.8-2.4); POTASSIUM 5.9 mmol/L (3.5-5.1); TOTAL PROTEIN, SERUM 7.8 g/dL (6.4-8.2)
[2023-12-26] MEDS ORDERED: LORAZEPAM 2 MG/1 ML VIAL IV PRN (06:15)
[2023-12-26 06:36] LABS: ABG BASE EXCESS -1.3 mmol/L (-2.0-2.0); ABG HCO3 21.6 mmol/L (22.0-26.0); ABG PCO2 30.6 mmHg (35.0-48.0); ABG PH 7.466 (7.340-7.440); ABG PO2 75.9 mmHg (75.0-100.0); ABG SITE LEFT RADIAL; ABG TOTAL HEMOGLOBIN 11.8 G/dL (14.0-18.0); AaDO2 96.1 mmHg; COHb 0.3 % (0.0-3.9); MetHb 0.2 % (0.0-1.5); O2Hb 94.5 % (94.0-97.0); VT, ABG 500 mL
[2023-12-27] VITALS (55 sets, daily range): BP systolic 92–145; BP diastolic 53–87; TEMP 97.5–98.9; O2SAT 94–100
[2023-12-27 05:52] LABS: ALBUMIN 3.1 g/dL (3.4-5.0); BILIRUBIN,TOTAL 1.5 mg/dL (0.2-1.0); CREATININE 3.7 mg/dL (0.6-1.3); POTASSIUM 5.7 mmol/L (3.5-5.1); TOTAL PROTEIN, SERUM 8.4 g/dL (6.4-8.2)
[2023-12-27 06:30] LABS: ABG BASE EXCESS 2.8 mmol/L (-2.0-2.0); ABG HCO3 25.2 mmol/L (22.0-26.0); ABG PCO2 33.1 mmHg (35.0-48.0); ABG PH 7.499 (7.340-7.440); ABG PO2 71.8 mmHg (75.0-100.0); ABG SITE RIGHT RADIAL; ABG TOTAL HEMOGLOBIN 19.5 G/dL (14.0-18.0); AaDO2 95.8 mmHg; COHb 0.3 % (0.0-3.9); MetHb 0.6 % (0.0-1.5); VT, ABG 500 mL
[2023-12-27 06:59] LABS: MAGNESIUM 3.2 mg/dL (1.8-2.4)
[2023-12-27 07:32] LABS: BASOPHILS % (AUTO) 0.2 % (0.0-2.0); DIFFERENTIAL COMMENT 0; HEMATOCRIT 33.5 % (36.7-47.1); HEMOGLOBIN 11.4 g/dL (12.5-16.3); LYMPHOCYTES # (AUTO) 1.6 K/uL (0.8-4.8); MEAN CORPUSCULAR HEMOGLOBIN 34.3 uug (23.8-33.4); MEAN CORPUSCULAR HGB CONC 34 g/dL (32.5-36.3); MEAN CORPUSCULAR VOLUME 100.6 fL (73.0-96.2); MONOCYTES # (AUTO) 2.5 K/uL (0.1-1.30); MONOCYTES % (AUTO) 10.9 % (0.0-11.0); NEUTROPHILS % (AUTO) 81.9 % (38.5-71.5); PLATELET COUNT (AUTO) 169 K/uL (152-348); RED BLOOD CELL COUNT(AUTO) 3.33 MIL/uL (4.06-5.63); RED CELL DISTRIBUTION WIDTH 14.2 % (12.1-16.2); WHITE BLOOD COUNT (AUTO) 23.3 K/uL (3.6-10.2)
[2023-12-27 07:44] LABS: PHOSPHOROUS 9.2 mg/dL (2.5-4.9)
[2023-12-27 12:54] LABS: NEUTROPHILS % (MANUAL) 80 % (42-75)
[2023-12-27 12:55] LABS: LYMPHOCYTES % (MANUAL) 11 % (20-40); MONOCYTES % (MANUAL) 9 % (2-10)
[2023-12-27 12:57] LABS: PLATELET ESTIMATE ADEQUATE
[2023-12-28] VITALS (54 sets, daily range): BP systolic 73–205; BP diastolic 37–97; TEMP 98.3–98.4; O2SAT 90–98
[2023-12-28 05:18] LABS: BASOPHILS # (AUTO) 0.1 K/UL (0.0-0.2); BASOPHILS % (AUTO) 0.4 % (0.0-2.0); EOSINOPHILS % (AUTO) 0.1 % (0.0-7.0); HEMATOCRIT 30.3 % (36.7-47.1); HEMOGLOBIN 10.5 g/dL (12.5-16.3); LYMPHOCYTES # (AUTO) 1.1 K/uL (0.8-4.8); LYMPHOCYTES % (AUTO) 4.8 % (20.5-51.5); MEAN CORPUSCULAR HEMOGLOBIN 34.8 uug (23.8-33.4); MEAN CORPUSCULAR HGB CONC 35 g/dL (32.5-36.3); MEAN CORPUSCULAR VOLUME 100.7 fL (73.0-96.2); MONOCYTES # (AUTO) 1.4 K/uL (0.1-1.30); NEUTROPHILS # (AUTO) 20.5 K/uL (1.8-8.9); NEUTROPHILS % (AUTO) 88.7 % (38.5-71.5); PLATELET COUNT (AUTO) 110 K/uL (152-348); RED BLOOD CELL COUNT(AUTO) 3.01 MIL/uL (4.06-5.63); RED CELL DISTRIBUTION WIDTH 14.3 % (12.1-16.2); WHITE BLOOD COUNT (AUTO) 23.1 K/uL (3.6-10.2)
[2023-12-28 05:48] LABS: ALBUMIN 2.7 g/dL (3.4-5.0); BILIRUBIN,TOTAL 1.2 mg/dL (0.2-1.0); CALCIUM 8.4 mg/dL (8.5-10.1); CREATININE 3.3 mg/dL (0.6-1.3); DIFFERENTIAL COMMENT 1; MAGNESIUM 2.8 mg/dL (1.8-2.4); POTASSIUM 5.9 mmol/L (3.5-5.1); TOTAL PROTEIN, SERUM 7.3 g/dL (6.4-8.2)
[2023-12-28 05:54] LABS: ABG BASE EXCESS 1.6 mmol/L (-2.0-2.0); ABG HCO3 24.6 mmol/L (22.0-26.0); ABG PCO2 33.6 mmHg (35.0-48.0); ABG PH 7.483 (7.340-7.440); ABG PO2 84.2 mmHg (75.0-100.0); ABG SITE LEFT RADIAL; ABG TOTAL HEMOGLOBIN 12.7 G/dL (14.0-18.0); COHb 0.2 % (0.0-3.9); MetHb 0.1 % (0.0-1.5); O2Hb 95.9 % (94.0-97.0); VT, ABG 500 mL
[2023-12-28 06:07] LABS: PHOSPHOROUS 9.1 mg/dL (2.5-4.9)
[2023-12-28] MEDS: PRECEDEX 400 MCG/100 ML BOTTLE 100 ML IV PRN (08:04)
[2023-12-28] MEDS: SODIUM POLYSTYRENE SULFONATE 15 G/60 ML LIQUID UDC PO ONE (09:00)
[2023-12-28] MEDS: NOREPINEPHRINE BITARTRATE 8 MG in IV NORMAL SALINE 242 ML IV PRN (11:00)
[2023-12-28] MEDS ORDERED: NOREPINEPHRINE BITARTRATE 32 MG in IV NORMAL SALINE 218 ML IV PRN (11:00)
[2023-12-28] MEDS: IV NORMAL SALINE 500 ML IV ONE (11:04)
[2023-12-28 19:45] LABS: BAND % (MANUAL) 13 % (0-10); NEUTROPHILS % (MANUAL) 74 % (42-75)
[2023-12-28 19:46] LABS: LYMPHOCYTES % (MANUAL) 4 % (20-40); METAMYELOCYTES % 3 % (0-1); MONOCYTES % (MANUAL) 6 % (2-10); PLATELET ESTIMATE DECREASED
[2023-12-28] MEDS: CLONAZEPAM 0.5 MG TABLET PO SCH (21:25)
[2023-12-29] VITALS (38 sets, daily range): BP systolic 81–163; BP diastolic 45–70; TEMP 97.8–98.2; O2SAT 94–99
[2023-12-29 16:19] LABS: BASOPHILS % (AUTO) 0.1 % (0.0-2.0); DIFFERENTIAL COMMENT 0; HEMATOCRIT 30.4 % (36.7-47.1); HEMOGLOBIN 10.5 g/dL (12.5-16.3); LYMPHOCYTES % (AUTO) 4.4 % (20.5-51.5); MEAN CORPUSCULAR HEMOGLOBIN 34.6 uug (23.8-33.4); MEAN CORPUSCULAR HGB CONC 34 g/dL (32.5-36.3); MEAN CORPUSCULAR VOLUME 100.4 fL (73.0-96.2); MONOCYTES % (AUTO) 4.6 % (0.0-11.0); NEUTROPHILS % (AUTO) 90.9 % (38.5-71.5); PLATELET COUNT (AUTO) 133 K/uL (152-348); RED BLOOD CELL COUNT(AUTO) 3.03 MIL/uL (4.06-5.63); RED CELL DISTRIBUTION WIDTH 13.9 % (12.1-16.2)
[2023-12-29 16:20] LABS: CALCIUM 8.4 mg/dL (8.5-10.1); CREATININE 3.1 mg/dL (0.6-1.3); POTASSIUM 5.3 mmol/L (3.5-5.1)
[2023-12-29 16:21] LABS: ALBUMIN 2.8 g/dL (3.4-5.0); BILIRUBIN,TOTAL 1.2 mg/dL (0.2-1.0); MAGNESIUM 2.9 mg/dL (1.8-2.4); TOTAL PROTEIN, SERUM 6.9 g/dL (6.4-8.2)
[2023-12-29] MEDS ORDERED: methylPREDNISolone SOD SUCC IV (17:10)
[2023-12-29] MEDS ORDERED: LACT-209 GT (17:10)
[2023-12-29] MEDS ORDERED: MULT-24 NG (17:10)
[2023-12-29] MEDS ORDERED: GABA-536 NG (17:10)
[2023-12-29] MEDS ORDERED: FOLI1TAB94 NG (17:10)
[2023-12-29] MEDS ORDERED: CLON0.5T4 PO (17:10)
[2023-12-29] MEDS ORDERED: LORA2VIA6 IV (17:10)
[2023-12-29] MEDS ORDERED: MENT113O TP (17:10)
[2023-12-29] MEDS ORDERED: ALBU1.25 NEB (17:10)
[2023-12-29] MEDS ORDERED: IPRA0.2S6 NEB (17:10)
[2023-12-29] MEDS ORDERED: THIA100T13 NG (17:11)
[2023-12-29] MEDS ORDERED: PANT40VI IV (17:11)
[2023-12-29] MEDS ORDERED: NYST15CR TOP (17:11)
[2023-12-29 18:28] LABS: PHOSPHOROUS 9.9 mg/dL (2.5-4.9)
== END 2023-12-29 18:36 | disposition short-term general hospital (02) | DRG 870 ==
LOC: ER 00:15 → TELE3 01:53 → TRANSITION 12-16 02:33 → CCU 12-16 20:19
PROVIDERS: ADMIT Nurse Practitioner Acute Care; ATTEND Internal Medicine
PROC: 05HB33Z Insertion of Infusion Device into Right Basilic Vein, Percutaneous Approach (ICD-10-PCS; principal; 2023-12-15)
PROC: 5A1955Z Respiratory Ventilation, Greater than 96 Consecutive Hours (ICD-10-PCS; 2023-12-16)
PROC: 0BH18EZ Insertion of Endotracheal Airway into Trachea, Via Natural or Artificial Opening Endoscopic (ICD-10-PCS; 2023-12-16)
PROC: 5A12012 Performance of Cardiac Output, Single, Manual (ICD-10-PCS; 2023-12-16)
PROC: 02HV33Z Insertion of Infusion Device into Superior Vena Cava, Percutaneous Approach (ICD-10-PCS; 2023-12-17)
PROC: 5A1D70Z Performance of Urinary Filtration, Intermittent, Less than 6 Hours Per Day (ICD-10-PCS; 2023-12-18)
DX: A41.9 Sepsis, unspecified organism (principal); J96.01 Acute respiratory failure with hypoxia; G92.8 Other toxic encephalopathy; B37.1 Pulmonary candidiasis; I46.9 Cardiac arrest, cause unspecified; N17.0 Acute kidney failure with tubular necrosis; I50.33 Acute on chronic diastolic (congestive) heart failure; N18.6 End stage renal disease; I13.2 Hypertensive heart and chronic kidney disease with heart failure and with stage 5 chronic kidney disease, or end stage renal disease; R57.9 Shock, unspecified; G25.3 Myoclonus; D75.838 Other thrombocytosis; K70.9 Alcoholic liver disease, unspecified; F10.20 Alcohol dependence, uncomplicated; I27.20 Pulmonary hypertension, unspecified; E66.9 Obesity, unspecified; Z68.27 Body mass index [BMI] 27.0-27.9, adult; F17.210 Nicotine dependence, cigarettes, uncomplicated; E78.5 Hyperlipidemia, unspecified; E87.5 Hyperkalemia
CPT/HCPCS: 36415; 36569; 36600; 70030-TC; 70450; 71045; 76705; 76770; 82746; 82803; 83550; 83605; 83615; 83690; 83735; 83921; 83970; 84100; 84155; 84165; 84300; 84443; 84478; 84484; 85025; 85610; 85730; 86850; 86900; 86901; 87040; 87340; 87350; 90937; 92950; 93005; 93307; 94002; 94003; 94640; 94760; 95819; A4606; A4663; A6209; C9113; G0378; J0171; J0610; J1642; J1644; J1940; J1956; J2060; J2250; J2543; J2920; J2930; J3480; J3490; J3590; J7040; J7050